=== PATIENT | female | born 1995 | race African-American/Black ===

== ENCOUNTER 2017-03-22 06:32 | Emergency (ER) | payer OTHER ==
[~2017-03-22] VITALS: Ht 170.2 cm; Wt 55.4 kg
[~2017-03-22 06:32] MED LIST: DOXYCYCLINE HY100 MG PO; IBUPROFEN800 MG PO; K-DUR20 MEQ PO; NAPROXEN500 MG PO; PERCOCET 5/31 TABLET PO; TRAMADOL HCL50 MG PO; VICODIN,LORT1 TABLET PO; ZOFRAN ODT4 MG PO; ZOFRAN4 MG PO
[2017-03-22 07:49] LABS: ADD MIUA? YES; BILIRUBIN NEGATIVE; BLOOD SMALL; COLOR YELLOW ((YELLOW)); GLUCOSE (STRIP) NEGATIVE; KETONES 5; LEUKOCYTES NEGATIVE; NITRITE NEGATIVE; PROTEIN (STRIP) 30; SPECIFIC GRAVITY 1.017 (1.000-1.030); UROBILINOGEN 0.2 MG/DL (0.2-1.0)
[2017-03-22 08:03] LABS: BACTERIA NONE SEEN /HPF; EPITHELIAL CELLS 1+ /HPF; MUCUS TRACE /LPF; RED BLOOD CELLS 0-5 /HPF (0-5); UCUL ADDED? NO; WHITE BLOOD CELLS 0-5 /HPF (0-5)
[2017-03-22 08:07] LABS: HEMATOCRIT 38.9 % (36.0-46.0); MCH 24.4 PG (29.0-34.0); MCHC 34.7 G/DL (30.0-36.0); MCV 70.2 FL (83-99); MEAN PLAT.VOLUME 10.5 uM^3 (9.5-12.4); PLATELET COUNT 186 K/uL (156-360); RBC DIS.WIDTH-CV 15.9 % (11.8-14.6); RBC DIS.WIDTH-SD 39.8 % (39-53); RED BLOOD COUNT 5.54 M/uL (3.80-5.20); WHITE BLOOD COUNT 18.5 K/uL (4.1-10.2)
[2017-03-22 08:20] LABS: CHLORIDE 103 mEq/L (99-109); POTASSIUM 3.8 mEq/L (3.7-5.4); SODIUM 135 mEq/L (136-147)
[2017-03-22 08:22] LABS: GLUCOSE 97 mg/dL (70-99)
[2017-03-22 08:23] LABS: ANION GAP 7 MEQ/L (2-14)
[2017-03-22 08:26] LABS: ALKALINE PHOSPHATASE 55 IU/L (3-129); GFR ESTIMATE (CALCULATED) > 59 mL/min/
[2017-03-22 08:27] LABS: UREA NITROGEN (BUN) 7 mg/dL (9-23)
[2017-03-22 08:35] LABS: QUANTITATIVE HCG < 4.0 MIU/ML
[2017-03-22 09:23] LABS: LIPASE 19 U/L (1.0-51.0)
[2017-03-22] MEDS ORDERED: BENTYL20 MG PO (10:43)
[2017-03-22] MEDS ORDERED: ZOFRAN ODT4 MG PO (10:43)
[2017-03-22] MEDS ORDERED: TRAMADOL HCL50 MG PO (10:43)
[2017-03-22 10:55] VITALS: BP 108/56
== END 2017-03-22 11:04 | disposition home or self-care (01) ==
LOC: EME 06:32
PROVIDERS: Nurse Practitioner Family
DX: A08.4 Viral intestinal infection, unspecified (principal); N83.209 Unspecified ovarian cyst, unspecified side; M79.1 Myalgia; F17.200 Nicotine dependence, unspecified, uncomplicated
CPT/HCPCS: 74020; 74176; 76856; 80053; 81003; 83690; 84702; 85027; 99281; 99285; J1885; J2405; J3010; J7030

== ENCOUNTER 2017-03-24 11:21 | Inpatient (IN) | payer OTHER ==
[~2017-03-24] VITALS: Ht 168.9 cm; Wt 54.8 kg
[~2017-03-24 11:21] MED LIST changes: +BENTYL20 MG PO
[2017-03-24 12:00] LABS: CHLORIDE 101 mEq/L (99-109); POTASSIUM 3.2 mEq/L (3.7-5.4); SODIUM 136 mEq/L (136-147)
[2017-03-24 12:01] LABS: HEMATOCRIT 40.9 % (36.0-46.0); MCH 23.4 PG (29.0-34.0); MCHC 33.5 G/DL (30.0-36.0); MCV 69.8 FL (83-99); MEAN PLAT.VOLUME 10.3 uM^3 (9.5-12.4); PLATELET COUNT 199 K/uL (156-360); RBC DIS.WIDTH-CV 15.9 % (11.8-14.6); RBC DIS.WIDTH-SD 39.4 % (39-53); RED BLOOD COUNT 5.86 M/uL (3.80-5.20); WHITE BLOOD COUNT 15.2 K/uL (4.1-10.2)
[2017-03-24 12:02] LABS: GLUCOSE 85 mg/dL (70-99)
[2017-03-24 12:03] LABS: ANION GAP 13 MEQ/L (2-14)
[2017-03-24 12:05] LABS: ALKALINE PHOSPHATASE 61 IU/L (3-129)
[2017-03-24 12:06] LABS: GFR ESTIMATE (CALCULATED) > 59 mL/min/
[2017-03-24 12:07] LABS: TOTAL BILIRUBIN 0.7 mg/dL (0.0-1.0); UREA NITROGEN (BUN) 9 mg/dL (9-23)
[2017-03-24 12:09] LABS: LIPASE 11 U/L (1.0-51.0)
[2017-03-24 12:16] LABS: QUANTITATIVE HCG < 4.0 MIU/ML
[2017-03-24 14:49] LABS: ADD MIUA? YES; BILIRUBIN NEGATIVE; BLOOD NEGATIVE; COLOR YELLOW ((YELLOW)); GLUCOSE (STRIP) NEGATIVE; KETONES 80; LEUKOCYTES NEGATIVE; NITRITE NEGATIVE; PROTEIN (STRIP) 100; SPECIFIC GRAVITY 1.031 (1.000-1.030); UROBILINOGEN 0.2 MG/DL (0.2-1.0)
[2017-03-24 14:55] LABS: BACTERIA RARE /HPF; EPITHELIAL CELLS RARE /HPF; MUCUS 4+ /LPF; RED BLOOD CELLS 0-5 /HPF (0-5); UCUL ADDED? NO; WHITE BLOOD CELLS 0-5 /HPF (0-5)
[2017-03-24 19:34] VITALS: BP 125/65
[2017-03-24 23:54] VITALS: BP 109/65
[2017-03-25 04:03] VITALS: BP 101/58
[2017-03-25 07:35] VITALS: BP 113/61
[2017-03-25 07:37] LABS: EOSINOPHIL COUNT 0.2 K/uL (0-0.3); HEMATOCRIT 30.5 % (36.0-46.0); IMMATURE GRANULOCYTE (%) 0.4 % (0.0-0.7); INSTRUMENT ABS NEUTROPHIL CT 5.2 K/uL; LYMPHOCYTE COUNT 2.1 K/uL (1.0-2.8); MCHC 34.1 G/DL (30.0-36.0); MCV 70.4 FL (83-99); MEAN PLAT.VOLUME 10.6 uM^3 (9.5-12.4); MONOCYTE (%) 10.5 % (3-12); MONOCYTE COUNT 0.9 K/uL (0-0.8); NEUTROPHIL (%) 62.2 % (45-76); NEUTROPHIL COUNT 5.2 K/uL (1.8-6.4); PLATELET COUNT 161 K/uL (156-360); RBC DIS.WIDTH-CV 15.9 % (11.8-14.6); RBC DIS.WIDTH-SD 40.2 % (39-53); WHITE BLOOD COUNT 8.4 K/uL (4.1-10.2)
[2017-03-25 07:43] LABS: RED BLOOD COUNT 4.33 M/uL (3.80-5.20)
[2017-03-25 12:05] VITALS: BP 122/66
[2017-03-25 15:30] VITALS: BP 117/68
[2017-03-25 20:01] VITALS: BP 122/80
[2017-03-25 23:08] VITALS: BP 115/78
[2017-03-26 03:14] VITALS: BP 111/58
[2017-03-26 07:14] VITALS: BP 114/60
[2017-03-26 12:40] LABS: CHLAMYDIA TRACHOMATIS NEGATIVE; NEISSERIA GONORRHOEAE POSITIVE
[2017-03-26 15:55] VITALS: BP 105/56
[2017-03-27 00:11] VITALS: BP 128/74
[2017-03-27 07:18] VITALS: BP 120/70
[2017-03-27 11:05] VITALS: BP 125/78
[2017-03-27] MEDS ORDERED: IBUPROFEN800 MG PO (11:48)
[2017-03-27] MEDS ORDERED: METRONIDAZOLE500 MG PO (11:48)
[2017-03-27] MEDS ORDERED: DOXYCYCLINE HY100 M3 PO (11:48)
[2017-03-27] MEDS ORDERED: ENDOCET 5-3251 EACH PO (11:48)
== END 2017-03-27 14:53 | disposition home or self-care (01) | DRG 758 ==
LOC: EME 11:21 → EDOF 17:40 → 2EAST 17:40
PROVIDERS: Emergency Medicine; Obstetrics & Gynecology Obstetrics
DX: N73.9 Female pelvic inflammatory disease, unspecified (principal); A59.01 Trichomonal vulvovaginitis; A54.9 Gonococcal infection, unspecified; E87.6 Hypokalemia; F17.200 Nicotine dependence, unspecified, uncomplicated
CPT/HCPCS: 74177; 76856; 80053; 81003; 83690; 84702; 85025; 85027; 87086; 87210; 87491; 87591; 99281; 99285; G0378; J0696; J1885; J2405; J3411; J3475; J7030; J7050; J7120; S0030

== ENCOUNTER 2017-04-27 08:33 | Emergency (ER) | payer OTHER ==
[~2017-04-27] VITALS: Ht 170.2 cm; Wt 54.7 kg
[~2017-04-27 08:33] MED LIST changes: +DOXYCYCLINE HY100 M3 PO; +ENDOCET 5-3251 EACH PO; +METRONIDAZOLE500 MG PO
[2017-04-27] MEDS ORDERED: TYLENOL WITH C1 EACH PO (11:48)
[2017-04-27 11:55] VITALS: BP 105/54
== END 2017-04-27 11:57 | disposition home or self-care (01) ==
LOC: EME 08:33
DX: S30.0XXA Contusion of lower back and pelvis, initial encounter (principal); R51 Headache; M25.561 Pain in right knee; M25.562 Pain in left knee; V43.52XA Car driver injured in collision with other type car in traffic accident, initial encounter; W22.10XA Striking against or struck by unspecified automobile airbag, initial encounter; Y92.410 Unspecified street and highway as the place of occurrence of the external cause; F17.200 Nicotine dependence, unspecified, uncomplicated
CPT/HCPCS: 70450; 72100; 99281; 99284